=== PATIENT | female | born 1980 | race Caucasian/White ===

== ENCOUNTER 2020-10-20 22:27 | Emergency (ER) | payer MEDICAID ==
[~2020-10-20] VITALS: Ht 162.6 cm; Wt 61.0 kg
[2020-10-20] MEDS ORDERED: MORPHINE SULFATE 4 MG/ML CPJ (NOT FOR IM USE) IV STA (23:30)
[2020-10-20] MEDS ORDERED: SODIUM CHLORIDE 0.9% 1,000 ML IV ONE (23:30)
[2020-10-20] MEDS ORDERED: KETOROLAC 30MG/ML VIAL IV STA (23:30)
[2020-10-20] MEDS ORDERED: ONDANSETRON HCL 4MG/2ML INJ IV ONE (23:45)
[2020-10-20 23:48] LABS: BASOPHILS % 0.9 % (0.0-2.0); EOSINOPHILS % 0.6 % (0.0-5.0); HEMATOCRIT. 34.8 % (36.0-48.0); HEMOGLOBIN. 11.5 g/dL (12.0-16.0); LYMPHOCYTES % 15.6 % (20.0-50.0); MEAN CORPUSCULAR HEMOGLOBIN 25.4 pg (28.0-32.0); MEAN CORPUSCULAR VOLUME 76.9 fL (81.0-99.0); MEAN PLATELET VOLUME 7.7 fl (7.4-10.4); NEUTROPHILS % 76.9 % (40.0-76.0); PLATELET 387 x1000/uL (130-400); RED BLOOD CELL COUNT 4.53 mill/uL (4.2-5.4)
[2020-10-20 23:53] LABS: CHLORIDE 103 mEq/L (98-107)
[2020-10-20 23:58] LABS: PROTHROMBIN TIME 10.3 sec (9.6-11.0)
[2020-10-21] MEDS ORDERED: DIPHENHYDRAMINE 50MG/ML VIAL IV ONE
[2020-10-21] MEDS ORDERED: EPINEPHRINE 1:1000 1 MG/ML AMP INJ ONE
[2020-10-21] MEDS ORDERED: METHYLPREDNISOLONE SOD SUCC 125 MG/2 ML VIAL IV ONE
[2020-10-21 00:14] LABS: HCG SCREEN NEGATIVE
[2020-10-21] MEDS ORDERED: ONDANSETRON HCL 4MG/2ML INJ IV ONE (00:30)
[2020-10-21 01:03] LABS: CLARITY URINE TURBID (CLEAR); COLOR URINE YELLOW (YELLOW); KETONES URINE 2+ (NEGATIVE); LEUKOCYTE ESTERASE URINE 1+ (NEGATIVE); NITRITE URINE NEGATIVE (NEGATIVE); OCCULT BLOOD URINE TRACE (NEGATIVE); PROTEIN URINE 1+ (NEGATIVE); SPECIFIC GRAVITY URINE 1.031 (1.005-1.030); UROBILINOGEN URINE 0.2 E.U./dL (0.2-1.0)
[2020-10-21] MEDS ORDERED: ACETAMINOPHEN 500MG TABLET PO ONE (03:15)
[2020-10-21] MEDS ORDERED: LEVOFLOXACIN 500MG PREMIX 100 ML IV SCH (03:15)
[2020-10-21] MEDS ORDERED: PROMETHAZINE HCL 25MG SUPP PR SCH (03:15)
[2020-10-21 03:54] VITALS: BP 165/87
== END 2020-10-21 03:55 | disposition home or self-care (01) ==
LOC: ER 22:27
DX: N12 Tubulo-interstitial nephritis, not specified as acute or chronic (principal); E11.9 Type 2 diabetes mellitus without complications; Z79.4 Long term (current) use of insulin; Z88.5 Allergy status to narcotic agent
CPT/HCPCS: 36415; 74176; 80053; 81003; 83690; 84703; 85025; 85610; 87077; 87086; 87186; 93005; 96361; 96365; 96375; 96376; 99284; J1200; J1885; J1956; J2270; J2405; J2930; J3490; J7030

== ENCOUNTER 2021-03-08 09:02 | Inpatient (IN) | payer MEDICAID ==
[~2021-03-08] VITALS: Ht 157.5 cm; Wt 54.4 kg
[2021-03-08] MEDS ORDERED: MAGNESIUM/ALUMINUM HYDROXIDE/SIMETHICONE 30ML UDC PO STA (09:08)
[2021-03-08] MEDS ORDERED: DICYCLOMINE 10 MG/5 ML ORAL SYR PO STA (09:08)
[2021-03-08] MEDS ORDERED: METOCLOPRAMIDE HCL 10MG/2ML VIAL IV STA (09:08)
[2021-03-08] MEDS ORDERED: SODIUM CHLORIDE 0.9% 1,000 ML IV ONE (09:15)
[2021-03-08] MEDS ORDERED: LORAZEPAM 2MG/ML CPJ IV ONE (09:15)
[2021-03-08] MEDS ORDERED: VISCOUS LIDOCAINE 2% 15 ML UDC MM STA (09:25)
[2021-03-08 09:38] LABS: BASOPHILS % 0.4 % (0.0-2.0); CHLORIDE 103 mEq/L (98-107); EOSINOPHILS % 0.5 % (0.0-5.0); HEMATOCRIT. 39.2 % (36.0-48.0); HEMOGLOBIN. 11.9 g/dL (12.0-16.0); LYMPHOCYTES % 12.1 % (20.0-50.0); MEAN CORPUSCULAR HEMOGLOBIN 26.1 pg (28.0-32.0); MEAN CORPUSCULAR VOLUME 85.6 fL (81.0-99.0); MEAN PLATELET VOLUME 7.2 fl (7.4-10.4); MONOCYTES % 6.1 % (2.0-8.0); NEUTROPHILS % 80.9 % (40.0-76.0); PLATELET 408 x1000/uL (130-400); RED BLOOD CELL COUNT 4.58 mill/uL (4.2-5.4); RED CELL DISTRIBUTION WIDTH 17.8 % (11.6-14.6)
[2021-03-08 09:40] LABS: PROTHROMBIN TIME 10.6 sec (9.6-11.0)
[2021-03-08 09:42] LABS: HCG SCREEN NEGATIVE
[2021-03-08 09:57] LABS: CLARITY URINE CLEAR (CLEAR); COLOR URINE YELLOW (YELLOW); KETONES URINE 3+ (NEGATIVE); LEUKOCYTE ESTERASE URINE 1+ (NEGATIVE); NITRITE URINE NEGATIVE (NEGATIVE); OCCULT BLOOD URINE TRACE (NEGATIVE); PH URINE 6.5 (4.5-8.0); PROTEIN URINE NEGATIVE (NEGATIVE); UROBILINOGEN URINE 0.2 E.U./dL (0.2-1.0)
[2021-03-08] MEDS ORDERED: IOHEXOL-300 100 ML BOTTLE ONE (10:54)
[2021-03-08] MEDS ORDERED: METOCLOPRAMIDE HCL 10MG/2ML VIAL IV ONE (14:30)
[2021-03-08 16:00] VITALS: BP 151/81
[2021-03-08] MEDS ORDERED: METF-414 MT (16:15)
[2021-03-08] MEDS ORDERED: DEXTROSE 50% WATER 50ML SYRINGE IV PRN (17:30)
[2021-03-08] MEDS ORDERED: MAGNESIUM/ALUMINUM HYDROXIDE/SIMETHICONE 30ML UDC PO PRN (17:30)
[2021-03-08] MEDS ORDERED: LORAZEPAM 2MG/ML CPJ IV PRN (17:30)
[2021-03-08] MEDS ORDERED: CLONIDINE 0.1MG TABLET PO PRN (17:30)
[2021-03-08] MEDS ORDERED: ACETAMINOPHEN 325MG TABLET PO PRN (17:30)
[2021-03-08] MEDS ORDERED: DIPHENHYDRAMINE 50MG/ML VIAL IV PRN (17:30)
[2021-03-08] MEDS ORDERED: HYDROCODONE/ACETAMINOPHEN 5/325MG TABLET PO PRN (17:30)
[2021-03-08] MEDS ORDERED: IPRATROPIUM/ALBUTEROL 0.5-3(2.5)MG/3ML NEB HHN PRN (17:30)
[2021-03-08] MEDS ORDERED: GUAIFENESIN 200MG/10ML SUGAR FREE UDC PO PRN (17:30)
[2021-03-08] MEDS: INSULIN LISPRO 100 UNITS/ML SUBCUT SCH ×2 (17:50→21:49)
[2021-03-08] MEDS: ENOXAPARIN 40MG/0.4ML SYR SUBCUT SCH (18:12)
[2021-03-08] MEDS: SODIUM CHLORIDE 0.45% 1,000 ML IV SCH (18:13)
[2021-03-08] MEDS: MORPHINE SULFATE 2 MG/ML CPJ (NOT FOR IM USE) IV PRN ×2 (18:16→20:15)
[2021-03-08 20:00] VITALS: BP 125/62
[2021-03-08] MEDS: CEFTRIAXONE 1,000 MG in DEXTROSE 5% WATER 50 ML IV SCH (20:13)
[2021-03-08] MEDS: BLOOD SUGAR DIAGNOSTIC STRIP TEST SCH (21:32)
[2021-03-08] MEDS: SODIUM CHLORIDE 0.9% INJ 3ML FLUSH IVF SCH (22:00)
[2021-03-08 23:07] LABS: *AMPHETAMINES SCREEN URINE NEGATIVE (NEGATIVE); *BARBITURATES SCREEN URINE NEGATIVE (NEGATIVE); *BENZODIAZEPINES SCREEN URINE NEGATIVE (NEGATIVE)
[2021-03-08 23:08] LABS: *COCAINE SCREEN URINE NEGATIVE (NEGATIVE); METHADONE URINE SCREEN NEGATIVE (NEGATIVE); OPIATES URINE SCREEN NEGATIVE (NEGATIVE); PHENCYCLIDINE URINE SCREEN NEGATIVE (NEGATIVE)
[2021-03-08 23:16] LABS: CANNABINOID URINE SCREEN PRESUMTIVE POSITIVE (NEGATIVE)
[2021-03-09 04:00] VITALS: BP 124/73
[2021-03-09 06:47] LABS: CHLORIDE 107 mEq/L (98-107)
[2021-03-09 06:56] LABS: BASOPHILS % 0.8 % (0.0-2.0); EOSINOPHILS % 2.5 % (0.0-5.0); HEMATOCRIT. 30.2 % (36.0-48.0); HEMOGLOBIN. 9.8 g/dL (12.0-16.0); LYMPHOCYTES % 28.6 % (20.0-50.0); MEAN CORPUSCULAR HEMOGLOBIN 25.7 pg (28.0-32.0); MEAN CORPUSCULAR VOLUME 78.9 fL (81.0-99.0); MEAN PLATELET VOLUME 7.6 fl (7.4-10.4); MONOCYTES % 9.5 % (2.0-8.0); NEUTROPHILS % 58.6 % (40.0-76.0); PLATELET 375 x1000/uL (130-400); RED BLOOD CELL COUNT 3.83 mill/uL (4.2-5.4); RED CELL DISTRIBUTION WIDTH 17.5 % (11.6-14.6)
[2021-03-09] MEDS: BLOOD SUGAR DIAGNOSTIC STRIP TEST SCH ×4 (07:06→21:05)
[2021-03-09] MEDS: SODIUM CHLORIDE 0.45% 1,000 ML IV SCH ×2 (07:06→15:11)
[2021-03-09] MEDS: SODIUM CHLORIDE 0.9% INJ 3ML FLUSH IVF SCH ×3 (07:06→22:52)
[2021-03-09] MEDS: INSULIN LISPRO 100 UNITS/ML SUBCUT SCH ×4 (07:47→21:00)
[2021-03-09] MEDS: DEXT 5%/0.45% NACL KCL 40MEQ/L 1,000 ML IV SCH ×2 (09:45→22:20)
[2021-03-09 11:09] LABS: PHOSPHORUS 2.3 mg/dL (2.5-4.9)
[2021-03-09] MEDS ORDERED: BISACODYL 10MG SUPP PR NR (11:15)
[2021-03-09] MEDS: ONDANSETRON HCL 4MG/2ML INJ IV PRN ×3 (11:20→21:18)
[2021-03-09] MEDS: MORPHINE SULFATE 2 MG/ML CPJ (NOT FOR IM USE) IV PRN ×2 (11:53→21:18)
[2021-03-09] MEDS: METOCLOPRAMIDE HCL 10MG/2ML VIAL IV SCH ×2 (14:05→17:23)
[2021-03-09] MEDS ORDERED: POTASSIUM CHLORIDE 20MEQ TABLET SR PO NR (14:15)
[2021-03-09] MEDS ORDERED: POTASSIUM-SODIUM PHOSPHATE POWDER PACKET PO ONE (14:15)
[2021-03-09] MEDS ORDERED: POTASSIUM PHOS,M-BASIC-D-BASIC 10 MMOL in DEXT 5% WATER 246.6667 ML IV NR (16:00)
[2021-03-09] MEDS: CEFTRIAXONE 1,000 MG in DEXTROSE 5% WATER 50 ML IV SCH (17:23)
[2021-03-09] MEDS: ENOXAPARIN 40MG/0.4ML SYR SUBCUT SCH (17:23)
[2021-03-09 20:00] VITALS: BP 119/66
[2021-03-10] VITALS: BP 123/68
[2021-03-10] MEDS: METOCLOPRAMIDE HCL 10MG/2ML VIAL IV SCH ×4 (00:39→18:00)
[2021-03-10 04:00] VITALS: BP 121/66
[2021-03-10] MEDS: SODIUM CHLORIDE 0.9% INJ 3ML FLUSH IVF SCH ×3 (06:10→22:50)
[2021-03-10] MEDS: ONDANSETRON HCL 4MG/2ML INJ IV PRN ×2 (06:26→22:04)
[2021-03-10] MEDS: BLOOD SUGAR DIAGNOSTIC STRIP TEST SCH ×4 (06:26→21:00)
[2021-03-10] MEDS: MORPHINE SULFATE 2 MG/ML CPJ (NOT FOR IM USE) IV PRN (06:30)
[2021-03-10] MEDS: INSULIN LISPRO 100 UNITS/ML SUBCUT SCH ×4 (07:00→22:49)
[2021-03-10 07:11] LABS: CHLORIDE 107 mEq/L (98-107)
[2021-03-10 08:00] VITALS: BP 109/83
[2021-03-10 08:29] LABS: BASOPHILS % 0.6 % (0.0-2.0); EOSINOPHILS % 1.9 % (0.0-5.0); HEMATOCRIT. 29.3 % (36.0-48.0); HEMOGLOBIN. 9.8 g/dL (12.0-16.0); LYMPHOCYTES % 27.3 % (20.0-50.0); MEAN CORPUSCULAR HEMOGLOBIN 26.3 pg (28.0-32.0); MEAN CORPUSCULAR VOLUME 78.5 fL (81.0-99.0); MEAN PLATELET VOLUME 7.5 fl (7.4-10.4); MONOCYTES % 9.1 % (2.0-8.0); NEUTROPHILS % 61.1 % (40.0-76.0); PLATELET 354 x1000/uL (130-400); RED BLOOD CELL COUNT 3.73 mill/uL (4.2-5.4); RED CELL DISTRIBUTION WIDTH 16.9 % (11.6-14.6)
[2021-03-10] MEDS: HYDROMORPHONE HCL/PF 2MG/ML CPJ IV PRN ×2 (08:42→22:06)
[2021-03-10 12:00] VITALS: BP 122/77
[2021-03-10] MEDS ORDERED: NA PHOS,M-B/NA PHOS,DI-BA ENEMA 118ML PR NR (14:00)
[2021-03-10] MEDS ORDERED: POTASSIUM PHOS,M-BASIC-D-BASIC 30 MMOL in SODIUM CHLORIDE 0.9% 500 ML IV NR (15:00)
[2021-03-10 16:00] VITALS: BP 128/76
[2021-03-10] MEDS: DEXT 5%/0.45% NACL KCL 40MEQ/L 1,000 ML IV SCH ×2 (16:28→22:52)
[2021-03-10] MEDS: ENOXAPARIN 40MG/0.4ML SYR SUBCUT SCH (18:00)
[2021-03-10] MEDS: CEFTRIAXONE 1,000 MG in DEXTROSE 5% WATER 50 ML IV SCH (18:00)
[2021-03-10] MEDS ORDERED: PROMETHAZINE HCL 25MG SUPP PR PRN (19:15)
[2021-03-10 20:00] VITALS: BP 112/69
[2021-03-11] VITALS: BP 116/67
[2021-03-11 04:00] VITALS: BP 114/71
[2021-03-11] MEDS: ONDANSETRON HCL 4MG/2ML INJ IV PRN (05:16)
[2021-03-11] MEDS: HYDROMORPHONE HCL/PF 2MG/ML CPJ IV PRN ×2 (05:16→22:54)
[2021-03-11] MEDS: SODIUM CHLORIDE 0.9% INJ 3ML FLUSH IVF SCH ×3 (05:17→21:06)
[2021-03-11] MEDS: BLOOD SUGAR DIAGNOSTIC STRIP TEST SCH ×4 (06:22→21:06)
[2021-03-11 06:47] LABS: CHLORIDE 106 mEq/L (98-107)
[2021-03-11 06:53] LABS: PHOSPHORUS 2.8 mg/dL (2.5-4.9)
[2021-03-11 07:05] LABS: BASOPHILS % 0.9 % (0.0-2.0); EOSINOPHILS % 1.4 % (0.0-5.0); HEMATOCRIT. 31.6 % (36.0-48.0); HEMOGLOBIN. 10.1 g/dL (12.0-16.0); MEAN CORPUSCULAR HEMOGLOBIN 25.1 pg (28.0-32.0); MEAN CORPUSCULAR VOLUME 78.6 fL (81.0-99.0); NEUTROPHILS % 64.7 % (40.0-76.0); RED BLOOD CELL COUNT 4.02 mill/uL (4.2-5.4); RED CELL DISTRIBUTION WIDTH 17.5 % (11.6-14.6)
[2021-03-11] MEDS: INSULIN LISPRO 100 UNITS/ML SUBCUT SCH ×4 (07:55→21:06)
[2021-03-11 08:00] VITALS: BP 103/61
[2021-03-11 09:54] LABS: PLATELET 341 x1000/uL (130-400)
[2021-03-11] MEDS ORDERED: POTASSIUM CHLORIDE INJ 40 MEQ in DEXT 5% WATER 500 ML IV NR (11:00)
[2021-03-11 12:00] VITALS: BP 122/81
[2021-03-11] MEDS ORDERED: NA PHOS,M-B/NA PHOS,DI-BA ENEMA 118ML PR NR (12:00)
[2021-03-11] MEDS: DEXT 5%/0.45% NACL KCL 40MEQ/L 1,000 ML IV SCH (15:00)
[2021-03-11 16:00] VITALS: BP 124/73
[2021-03-11] MEDS: ENOXAPARIN 40MG/0.4ML SYR SUBCUT SCH (17:14)
[2021-03-11] MEDS: CEFTRIAXONE 1,000 MG in DEXTROSE 5% WATER 50 ML IV SCH (17:15)
[2021-03-11 20:00] VITALS: BP 128/80
[2021-03-12] VITALS: BP 107/74
[2021-03-12] MEDS: DEXT 5%/0.45% NACL KCL 40MEQ/L 1,000 ML IV SCH (02:49)
[2021-03-12 04:00] VITALS: BP 119/81
[2021-03-12] MEDS: SODIUM CHLORIDE 0.9% INJ 3ML FLUSH IVF SCH ×2 (06:01→14:48)
[2021-03-12 06:59] LABS: BASOPHILS % 0.7 % (0.0-2.0); EOSINOPHILS % 1.3 % (0.0-5.0); HEMATOCRIT. 28.9 % (36.0-48.0); HEMOGLOBIN. 9.5 g/dL (12.0-16.0); LYMPHOCYTES % 27.9 % (20.0-50.0); MEAN CORPUSCULAR HEMOGLOBIN 25.5 pg (28.0-32.0); MEAN CORPUSCULAR VOLUME 77.7 fL (81.0-99.0); MEAN PLATELET VOLUME 7.9 fl (7.4-10.4); MONOCYTES % 9.2 % (2.0-8.0); NEUTROPHILS % 60.9 % (40.0-76.0); PLATELET 290 x1000/uL (130-400); RED BLOOD CELL COUNT 3.72 mill/uL (4.2-5.4); RED CELL DISTRIBUTION WIDTH 17.1 % (11.6-14.6)
[2021-03-12 07:35] LABS: CHLORIDE 104 mEq/L (98-107)
[2021-03-12 07:47] LABS: PHOSPHORUS 2.4 mg/dL (2.5-4.9)
[2021-03-12 07:49] LABS: TOTAL IRON BINDING CAPACITY 319 ug/dL (250-450)
[2021-03-12 08:00] VITALS: BP 107/72
[2021-03-12] MEDS: BLOOD SUGAR DIAGNOSTIC STRIP TEST SCH ×2 (08:03→13:04)
[2021-03-12] MEDS: INSULIN LISPRO 100 UNITS/ML SUBCUT SCH ×2 (08:26→13:18)
[2021-03-12 08:33] LABS: VITAMIN B12 SERUM 1136 pg/mL (211-911)
[2021-03-12 11:02] LABS: FERRITIN 7 ng/mL (10-291)
[2021-03-12 11:13] LABS: HEPATITIS B SURFACE ANTIGEN NEGATIVE
[2021-03-12 11:42] LABS: HEPATITIS A AB IGM NEGATIVE (NEGATIVE)
[2021-03-12 12:00] VITALS: BP 141/82
[2021-03-12] MEDS ORDERED: POTASSIUM-SODIUM PHOSPHATE POWDER PACKET PO SCH (12:30)
[2021-03-12] MEDS ORDERED: DOCUSATE SODIUM SUGAR FREE 100MG/10ML UDC PO SCH (13:15)
[2021-03-12] MEDS ORDERED: POLYETHYLENE GLYCOL 3350 (17GM) 1 DOSE PACK PO SCH (13:15)
[2021-03-12] MEDS ORDERED: ASCORBIC ACID 500 MG TABLET PO SCH (13:30)
[2021-03-12] MEDS: DOCUSATE SODIUM 100MG CAPSULE PO PRN ×2 (14:47→14:48)
[2021-03-12 16:00] VITALS: BP 134/92
[2021-03-12 16:22] VITALS: BP 134/90
[2021-03-12] MEDS ORDERED: FERROUS SULFATE 325MG TABLET PO SCH (17:50)
[2021-03-12] MEDS ORDERED: SENNOSIDES/DOCUSATE SOD 8.6/50MG TABLET PO SCH (21:00)
== END 2021-03-12 17:10 | disposition home or self-care (01) | DRG 48 ==
LOC: ER 09:02 → 6EST 10:37 → ENRESERV 13:04
PROVIDERS: ADMIT Internal Medicine; ATTEND Internal Medicine
PROC: 02H633Z Insertion of Infusion Device into Right Atrium, Percutaneous Approach (ICD-10-PCS; principal; 2021-03-11)
PROC: B518ZZA Fluoroscopy of Superior Vena Cava, Guidance (ICD-10-PCS; 2021-03-11)
PROC: B548ZZA Ultrasonography of Superior Vena Cava, Guidance (ICD-10-PCS; 2021-03-11)
DX: E11.43 Type 2 diabetes mellitus with diabetic autonomic (poly)neuropathy (principal); K76.0 Fatty (change of) liver, not elsewhere classified; E83.39 Other disorders of phosphorus metabolism; E11.65 Type 2 diabetes mellitus with hyperglycemia; K31.84 Gastroparesis; D50.9 Iron deficiency anemia, unspecified; F12.90 Cannabis use, unspecified, uncomplicated; E86.0 Dehydration; E87.6 Hypokalemia; N39.0 Urinary tract infection, site not specified; K59.00 Constipation, unspecified; K44.9 Diaphragmatic hernia without obstruction or gangrene; F15.90 Other stimulant use, unspecified, uncomplicated; Z79.84 Long term (current) use of oral hypoglycemic drugs; Z79.899 Other long term (current) drug therapy; Z87.891 Personal history of nicotine dependence; R11.10 Vomiting, unspecified; Z71.51 Drug abuse counseling and surveillance of drug abuser
CPT/HCPCS: 36415; 36573; 71045; 74018; 74177; 76830; 76856; 80048; 80053; 80076; 80305; 81003; 82010; 82607; 82728; 82746; 82962; 83036; 83540; 83550; 83605; 83735; 84100; 84703; 85025; 86705; 86709; 86803; 87077; 87186; 87340; 93005; 99285; C1725; C1893; J0696; J1170; J1650; J1815; J2060; J2270; J2405; J2765; J3480; J3490; J7030; J7040; J7060; Q9967

== ENCOUNTER 2021-03-14 11:33 | Emergency (ER) | payer MEDICAID ==
[~2021-03-14] VITALS: Ht 157.5 cm; Wt 60.0 kg
[~2021-03-14 11:33] MED LIST: METF-414 MT
[2021-03-14] MEDS ORDERED: SODIUM CHLORIDE 0.9% 1,000 ML IV ONE (12:00)
[2021-03-14] MEDS ORDERED: HALOPERIDOL LACTATE 5MG/ML VIAL IM ONE (12:00)
[2021-03-14 12:38] LABS: BASOPHILS % 1.2 % (0.0-2.0); EOSINOPHILS % 1.2 % (0.0-5.0); HEMATOCRIT. 34.1 % (36.0-48.0); HEMOGLOBIN. 11.1 g/dL (12.0-16.0); LYMPHOCYTES % 19.9 % (20.0-50.0); MEAN CORPUSCULAR HEMOGLOBIN 25.7 pg (28.0-32.0); MEAN CORPUSCULAR VOLUME 79.2 fL (81.0-99.0); MONOCYTES % 7.3 % (2.0-8.0); NEUTROPHILS % 70.4 % (40.0-76.0); RED BLOOD CELL COUNT 4.31 mill/uL (4.2-5.4); RED CELL DISTRIBUTION WIDTH 17.7 % (11.6-14.6)
[2021-03-14 12:43] LABS: CHLORIDE 103 mEq/L (98-107)
[2021-03-14] MEDS ORDERED: ONDANSETRON 4MG ODT PO ONE (12:45)
[2021-03-14] MEDS ORDERED: MORPHINE SULFATE 10 MG/ML CPJ IM ONE (12:45)
[2021-03-14 13:14] LABS: HCG SCREEN NEGATIVE
[2021-03-14 14:30] LABS: PROTHROMBIN TIME 10.3 sec (9.6-11.0)
[2021-03-14 14:36] LABS: CLARITY URINE CLEAR (CLEAR); COLOR URINE YELLOW (YELLOW); KETONES URINE NEGATIVE (NEGATIVE); LEUKOCYTE ESTERASE URINE NEGATIVE (NEGATIVE); NITRITE URINE NEGATIVE (NEGATIVE); OCCULT BLOOD URINE NEGATIVE (NEGATIVE); PH URINE 6.5 (4.5-8.0); PROTEIN URINE NEGATIVE (NEGATIVE); SPECIFIC GRAVITY URINE 1.029 (1.005-1.030); UROBILINOGEN URINE 0.2 E.U./dL (0.2-1.0)
[2021-03-14] MEDS ORDERED: CEPH500C2 MT (15:00)
[2021-03-14] MEDS ORDERED: HYDR-4346 MT (15:00)
[2021-03-14 15:27] VITALS: BP 128/88
== END 2021-03-14 16:09 | disposition home or self-care (01) ==
LOC: ER 11:33
DX: R10.84 Generalized abdominal pain (principal); E11.65 Type 2 diabetes mellitus with hyperglycemia; Z98.890 Other specified postprocedural states; Z79.84 Long term (current) use of oral hypoglycemic drugs
CPT/HCPCS: 36415; 80053; 81003; 83605; 83690; 84703; 85025; 85610; 87040; 87086; 93005; 96360; 96372; 99284; J1630; J2270; J7030; Q0162

== ENCOUNTER 2021-04-05 08:38 | Emergency (ER) | payer MEDICAID ==
[~2021-04-05] VITALS: Ht 157.5 cm; Wt 59.0 kg
[~2021-04-05 08:38] MED LIST changes: +CEPH500C2 MT; +HYDR-4346 MT
[2021-04-05] MEDS ORDERED: MORPHINE SULFATE 4 MG/ML CPJ (NOT FOR IM USE) IV STA ×2 (08:56→11:39)
[2021-04-05] MEDS ORDERED: ONDANSETRON HCL 4MG/2ML INJ IV STA (08:56)
[2021-04-05] MEDS ORDERED: SODIUM CHLORIDE 0.9% 1,000 ML IV ONE (09:00)
[2021-04-05 10:04] LABS: BASOPHILS % 0.7 % (0.0-2.0); EOSINOPHILS % 0.9 % (0.0-5.0); HEMATOCRIT. 31.6 % (36.0-48.0); HEMOGLOBIN. 10.3 g/dL (12.0-16.0); MEAN CORPUSCULAR HEMOGLOBIN 25.1 pg (28.0-32.0); MEAN CORPUSCULAR VOLUME 77.1 fL (81.0-99.0); MONOCYTES % 4.7 % (2.0-8.0); NEUTROPHILS % 82.7 % (40.0-76.0); PLATELET 386 x1000/uL (130-400); RED CELL DISTRIBUTION WIDTH 16.8 % (11.6-14.6)
[2021-04-05 10:08] LABS: CHLORIDE 102 mEq/L (98-107)
[2021-04-05 10:12] LABS: INR 0.9; PROTHROMBIN TIME 9.9 sec (9.6-11.0)
[2021-04-05 10:16] LABS: HCG SCREEN NEGATIVE
[2021-04-05 10:22] LABS: CLARITY URINE CLOUDY (CLEAR); COLOR URINE YELLOW (YELLOW); KETONES URINE TRACE (NEGATIVE); LEUKOCYTE ESTERASE URINE TRACE (NEGATIVE); NITRITE URINE NEGATIVE (NEGATIVE); OCCULT BLOOD URINE 3+ (NEGATIVE); PH URINE 5.5 (4.5-8.0); PROTEIN URINE TRACE (NEGATIVE); SPECIFIC GRAVITY URINE 1.026 (1.005-1.030); UROBILINOGEN URINE 0.2 E.U./dL (0.2-1.0)
[2021-04-05] MEDS ORDERED: CEFTRIAXONE 1 G PREMIX 50 ML IV NR (10:30)
[2021-04-05] MEDS ORDERED: GABA-532 MT (12:33)
[2021-04-05] MEDS ORDERED: CIPR-263 MT (12:33)
[2021-04-05 13:10] VITALS: BP 125/77
== END 2021-04-05 13:33 | disposition home or self-care (01) ==
LOC: ER 08:38
DX: N39.0 Urinary tract infection, site not specified (principal); R10.2 Pelvic and perineal pain; R11.10 Vomiting, unspecified; E11.9 Type 2 diabetes mellitus without complications; Z98.890 Other specified postprocedural states; Z79.84 Long term (current) use of oral hypoglycemic drugs
CPT/HCPCS: 36415; 80053; 81003; 83690; 84703; 85025; 85610; 87077; 87086; 87186; 96361; 96365; 96375; 96376; 99284; C1893; J0696; J2270; J2405; J7030; Z7610

== ENCOUNTER 2021-04-06 11:54 | Emergency (ER) | payer MEDICAID ==
[~2021-04-06] VITALS: Ht 172.7 cm; Wt 75.0 kg
[~2021-04-06 11:54] MED LIST changes: +CIPR-263 MT; +GABA-532 MT
[2021-04-06] MEDS ORDERED: ONDANSETRON HCL 4MG/2ML INJ IV STA (12:18)
[2021-04-06] MEDS ORDERED: SODIUM CHLORIDE 0.9% 1,000 ML IV ONE (12:30)
[2021-04-06 12:53] LABS: BASOPHILS % 0.8 % (0.0-2.0); EOSINOPHILS % 1.3 % (0.0-5.0); HEMATOCRIT. 32.3 % (36.0-48.0); HEMOGLOBIN. 10.6 g/dL (12.0-16.0); LYMPHOCYTES % 16.5 % (20.0-50.0); MEAN CORPUSCULAR HEMOGLOBIN 25.1 pg (28.0-32.0); MEAN CORPUSCULAR VOLUME 76.6 fL (81.0-99.0); MEAN PLATELET VOLUME 7.3 fl (7.4-10.4); MONOCYTES % 5.2 % (2.0-8.0); NEUTROPHILS % 76.2 % (40.0-76.0); PLATELET 396 x1000/uL (130-400); RED BLOOD CELL COUNT 4.21 mill/uL (4.2-5.4); RED CELL DISTRIBUTION WIDTH 17.3 % (11.6-14.6)
[2021-04-06 12:55] LABS: CHLORIDE 104 mEq/L (98-107)
[2021-04-06 13:02] LABS: BETA HYDROXYBUTYRATE 0.2 mMol/L (0.0-0.3)
[2021-04-06] MEDS ORDERED: HALOPERIDOL LACTATE 5MG/ML VIAL IM ONE ×2 (13:15→13:45)
[2021-04-06 13:23] LABS: INR 0.9; PROTHROMBIN TIME 9.9 sec (9.6-11.0)
[2021-04-06 15:30] VITALS: BP 118/81
[2021-04-12] MEDS ORDERED: METO-293 MT (12:09)
== END 2021-04-06 15:51 | disposition home or self-care (01) ==
LOC: ER 11:54
DX: R11.2 Nausea with vomiting, unspecified (principal); R10.12 Left upper quadrant pain; E11.9 Type 2 diabetes mellitus without complications; Z87.440 Personal history of urinary (tract) infections; Z98.890 Other specified postprocedural states; Z79.899 Other long term (current) drug therapy
CPT/HCPCS: 36415; 80053; 82010; 83690; 85025; 85610; 93005; 96361; 96372; 96374; 99284; J1630; J2405; J7030; Z7610

== ENCOUNTER 2021-04-08 13:23 | Emergency (ER) | payer MEDICAID ==
[~2021-04-08] VITALS: Ht 157.5 cm; Wt 59.0 kg
[2021-04-08] MEDS ORDERED: PANTOPRAZOLE SODIUM 40 MG/VIAL IV STA (14:20)
[2021-04-08] MEDS ORDERED: ONDANSETRON HCL 4MG/2ML INJ IV STA (14:20)
[2021-04-08] MEDS ORDERED: MORPHINE SULFATE 4 MG/ML CPJ (NOT FOR IM USE) IV STA (14:20)
[2021-04-08] MEDS ORDERED: SODIUM CHLORIDE 0.9% 1,000 ML IV ONE (14:30)
[2021-04-08] MEDS ORDERED: INSULIN REGULAR (HUMULIN R) UD 100 UNITS/ML SYR IV ONE (14:30)
[2021-04-08] MEDS ORDERED: HALOPERIDOL LACTATE 5MG/ML VIAL IM ONE (14:45)
[2021-04-08 16:45] LABS: CLARITY URINE CLEAR (CLEAR); COLOR URINE YELLOW (YELLOW); KETONES URINE NEGATIVE (NEGATIVE); LEUKOCYTE ESTERASE URINE NEGATIVE (NEGATIVE); NITRITE URINE NEGATIVE (NEGATIVE); OCCULT BLOOD URINE NEGATIVE (NEGATIVE); PROTEIN URINE NEGATIVE (NEGATIVE); SPECIFIC GRAVITY URINE 1.026 (1.005-1.030); UROBILINOGEN URINE 0.2 E.U./dL (0.2-1.0)
[2021-04-08 16:50] LABS: CHLORIDE 89 mEq/L (98-107)
[2021-04-08 16:55] LABS: PROTHROMBIN TIME 10.8 sec (9.6-11.0)
[2021-04-08 17:13] LABS: HCG SCREEN NEGATIVE
[2021-04-08] MEDS ORDERED: POTASSIUM CHLORIDE 20MEQ TABLET SR PO ONE (17:30)
[2021-04-08 18:13] LABS: BASOPHILS % 1.9 % (0.0-2.0); EOSINOPHILS % 0.5 % (0.0-5.0); HEMATOCRIT. 28.5 % (36.0-48.0); HEMOGLOBIN. 9.6 g/dL (12.0-16.0); LYMPHOCYTES % 16.6 % (20.0-50.0); MEAN CORPUSCULAR HEMOGLOBIN 25.4 pg (28.0-32.0); MEAN CORPUSCULAR VOLUME 75.5 fL (81.0-99.0); MEAN PLATELET VOLUME 8.1 fl (7.4-10.4); MONOCYTES % 8.4 % (2.0-8.0); NEUTROPHILS % 72.6 % (40.0-76.0); PLATELET 427 x1000/uL (130-400); RED BLOOD CELL COUNT 3.77 mill/uL (4.2-5.4); RED CELL DISTRIBUTION WIDTH 18.3 % (11.6-14.6)
[2021-04-08] MEDS ORDERED: IBUP-2028 MT (21:26)
[2021-04-08] MEDS ORDERED: POTA20TA82 MT (21:42)
[2021-04-08 21:45] VITALS: BP 103/63
== END 2021-04-08 22:08 | disposition home or self-care (01) ==
LOC: ER 13:23
DX: R10.32 Left lower quadrant pain (principal); R11.2 Nausea with vomiting, unspecified; E87.6 Hypokalemia; E11.65 Type 2 diabetes mellitus with hyperglycemia; E86.0 Dehydration; Z79.4 Long term (current) use of insulin; Z98.890 Other specified postprocedural states; Z79.899 Other long term (current) drug therapy
CPT/HCPCS: 36415; 71045; 74176; 76830; 76856; 80053; 81003; 82010; 82962; 83605; 83690; 84703; 85025; 85610; 87086; 93005; 96361; 96372; 96374; 96375; 99285; C9113; J1630; J1815; J2270; J2405; J7030; Z7610; 74177

== ENCOUNTER 2021-04-14 14:15 | Emergency (ER) | payer MEDICAID ==
[~2021-04-14] VITALS: Ht 157.5 cm; Wt 59.0 kg
[~2021-04-14 14:15] MED LIST changes: -CEPH500C2 MT; -CIPR-263 MT; +IBUP-2028 MT; +METO-293 MT; +POTA20TA82 MT
[2021-04-14 14:20] VITALS: BP 101/70
== END 2021-04-14 15:07 | disposition left against medical advice (07) ==
LOC: ER 14:15
DX: Z53.21 Procedure and treatment not carried out due to patient leaving prior to being seen by health care provider (principal)
CPT/HCPCS: 93005

== ENCOUNTER 2021-04-14 20:28 | Emergency (ER) | payer MEDICAID ==
[~2021-04-14] VITALS: Ht 162.6 cm; Wt 61.0 kg
[2021-04-14] MEDS ORDERED: PANTOPRAZOLE SODIUM 40 MG/VIAL IV STA (20:57)
[2021-04-14] MEDS ORDERED: SODIUM CHLORIDE 0.9% 1,000 ML IV ONE (21:00)
[2021-04-14] MEDS ORDERED: METOCLOPRAMIDE HCL 10MG/2ML VIAL IV ONE (21:00)
[2021-04-14] MEDS ORDERED: HALOPERIDOL LACTATE 5MG/ML VIAL IM ONE (21:15)
[2021-04-14 21:55] LABS: BASOPHILS % 1.1 % (0.0-2.0); LYMPHOCYTES % 31.1 % (20.0-50.0); MEAN CORPUSCULAR HEMOGLOBIN 25.5 pg (28.0-32.0); MONOCYTES % 7.9 % (2.0-8.0); NEUTROPHILS % 58.9 % (40.0-76.0); RED CELL DISTRIBUTION WIDTH 17.5 % (11.6-14.6)
[2021-04-14 21:59] LABS: CHLORIDE 102 mEq/L (98-107)
[2021-04-14 22:00] LABS: PROTHROMBIN TIME 10.3 sec (9.6-11.0)
[2021-04-14] MEDS ORDERED: DIPHENHYDRAMINE 50MG/ML VIAL IV ONE (22:00)
[2021-04-14] MEDS ORDERED: LORAZEPAM 2MG/ML CPJ IV ONE (22:00)
[2021-04-14 22:05] LABS: HCG SCREEN NEGATIVE
[2021-04-14 22:16] LABS: PLATELET 304 x1000/uL (130-400)
[2021-04-15 00:34] LABS: CLARITY URINE CLEAR (CLEAR); COLOR URINE YELLOW (YELLOW); KETONES URINE TRACE (NEGATIVE); LEUKOCYTE ESTERASE URINE NEGATIVE (NEGATIVE); NITRITE URINE NEGATIVE (NEGATIVE); OCCULT BLOOD URINE NEGATIVE (NEGATIVE); PROTEIN URINE NEGATIVE (NEGATIVE); SPECIFIC GRAVITY URINE 1.021 (1.005-1.030); UROBILINOGEN URINE 0.2 E.U./dL (0.2-1.0)
[2021-04-15 00:43] LABS: *AMPHETAMINES SCREEN URINE NEGATIVE (NEGATIVE); *BARBITURATES SCREEN URINE NEGATIVE (NEGATIVE); *BENZODIAZEPINES SCREEN URINE NEGATIVE (NEGATIVE); *COCAINE SCREEN URINE NEGATIVE (NEGATIVE)
[2021-04-15 00:44] LABS: METHADONE URINE SCREEN NEGATIVE (NEGATIVE); OPIATES URINE SCREEN NEGATIVE (NEGATIVE); PHENCYCLIDINE URINE SCREEN NEGATIVE (NEGATIVE)
[2021-04-15 01:10] LABS: CANNABINOID URINE SCREEN PRESUMTIVE POSITIVE (NEGATIVE)
[2021-04-15 02:40] VITALS: BP 138/77
== END 2021-04-15 05:15 | disposition home or self-care (01) ==
LOC: ER 20:28
DX: R10.32 Left lower quadrant pain (principal); F41.9 Anxiety disorder, unspecified; R11.10 Vomiting, unspecified; E11.9 Type 2 diabetes mellitus without complications; F17.200 Nicotine dependence, unspecified, uncomplicated; E86.0 Dehydration; F12.10 Cannabis abuse, uncomplicated; Z98.890 Other specified postprocedural states; Z79.899 Other long term (current) drug therapy
CPT/HCPCS: 36415; 80053; 80305; 81003; 81025; 83690; 84703; 85025; 85610; 93005; 96361; 96372; 96374; 96375; 99284; C9113; J1200; J1630; J2060; J2765; J7030

== ENCOUNTER 2021-04-17 11:09 | Emergency (ER) | payer MEDICAID | END 2021-04-17 11:53 | disposition left against medical advice (07) | LOC: ER 11:09 | DX: Z53.21 Procedure and treatment not carried out due to patient leaving prior to being seen by health care provider (principal) ==

== ENCOUNTER 2021-11-13 03:11 | Emergency (ER) | payer MEDICAID ==
[~2021-11-13] VITALS: Ht 162.6 cm; Wt 70.0 kg
[2021-11-13] MEDS ORDERED: ONDANSETRON 4MG ODT PO ONE (04:30)
[2021-11-13] MEDS ORDERED: ASPIRIN 81MG TABLET PO ONE (04:30)
[2021-11-13] MEDS ORDERED: NITROGLYCERIN 0.4MG TABLET SL SL PRN (04:30)
[2021-11-13] MEDS ORDERED: MAGNESIUM/ALUMINUM HYDROXIDE/SIMETHICONE 30ML UDC PO ONE (04:30)
[2021-11-13] MEDS ORDERED: METOCLOPRAMIDE HCL 10MG TABLET PO ONE (05:00)
[2021-11-13 05:18] LABS: EOSINOPHILS % 0.8 % (0.0-5.0); HEMATOCRIT. 37.1 % (36.0-48.0); HEMOGLOBIN. 12.3 g/dL (12.0-16.0); LYMPHOCYTES % 20.6 % (20.0-50.0); MEAN CORPUSCULAR HEMOGLOBIN 25.7 pg (28.0-32.0); MEAN CORPUSCULAR VOLUME 77.8 fL (81.0-99.0); MEAN PLATELET VOLUME 7.8 fl (7.4-10.4); MONOCYTES % 6.6 % (2.0-8.0); PLATELET 387 x1000/uL (130-400); RED BLOOD CELL COUNT 4.77 mill/uL (4.2-5.4); RED CELL DISTRIBUTION WIDTH 16.5 % (11.6-14.6)
[2021-11-13 05:22] LABS: CHLORIDE 96 mEq/L (98-107)
[2021-11-13] MEDS ORDERED: ONDANSETRON HCL 4MG/2ML INJ IV STA (05:24)
[2021-11-13] MEDS ORDERED: SODIUM CHLORIDE 0.9% 1,000 ML IV ONE (05:30)
[2021-11-13] MEDS ORDERED: FAMOTIDINE 20MG/2ML VIAL IV ONE ×2 (05:30→09:15)
[2021-11-13 05:41] LABS: CLARITY URINE CLOUDY (CLEAR); COLOR URINE YELLOW (YELLOW); KETONES URINE 2+ (NEGATIVE); LEUKOCYTE ESTERASE URINE NEGATIVE (NEGATIVE); NITRITE URINE NEGATIVE (NEGATIVE); OCCULT BLOOD URINE NEGATIVE (NEGATIVE); PROTEIN URINE NEGATIVE (NEGATIVE); SPECIFIC GRAVITY URINE 1.031 (1.005-1.030); UROBILINOGEN URINE 0.2 E.U./dL (0.2-1.0)
[2021-11-13] MEDS ORDERED: TOPUD MT (06:07)
[2021-11-13] MEDS ORDERED: METOCLOPRAMIDE HCL 10MG/2ML VIAL IV ONE ×2 (08:15→09:15)
[2021-11-13] MEDS ORDERED: KETOROLAC 30MG/ML VIAL IV ONE (08:15)
[2021-11-13] MEDS ORDERED: MORPHINE SULFATE 2 MG/ML CPJ (NOT FOR IM USE) IV ONE (09:30)
[2021-11-13] MEDS ORDERED: METO-293 MT (10:05)
[2021-11-13] MEDS ORDERED: NITR-87 MT (10:05)
[2021-11-13 10:41] VITALS: BP 124/73
== END 2021-11-13 10:43 | disposition home or self-care (01) ==
LOC: ER 03:11
DX: R07.89 Other chest pain (principal); R11.2 Nausea with vomiting, unspecified; E86.0 Dehydration; E11.9 Type 2 diabetes mellitus without complications; F12.10 Cannabis abuse, uncomplicated; Z98.890 Other specified postprocedural states; Z79.899 Other long term (current) drug therapy
CPT/HCPCS: 36415; 71045; 80053; 81003; 81025; 83690; 83880; 84484; 85025; 96361; 96374; 96375; 99285; J1885; J2270; J2405; J2765; J3490; J7030; Q0162; J8597